=== PATIENT | male | born 1995 | race Asian ===

== ENCOUNTER 2018-12-18 21:50 | Emergency (ER) | payer OTHER ==
[2018-12-18] MEDS: HYDROCODONE/APAP (5/325) TAB PO (23:04)
== END 2018-12-19 01:24 | disposition home or self-care (01) ==
LOC: FTE 12-19 01:24
DX: S62.305A Unspecified fracture of fourth metacarpal bone, left hand, initial encounter for closed fracture (principal); S62.307A Unspecified fracture of fifth metacarpal bone, left hand, initial encounter for closed fracture; W22.8XXA Striking against or struck by other objects, initial encounter; Y92.9 Unspecified place or not applicable
CPT/HCPCS: 29125; 73110-LT; 73130-LT; 99283-25

== ENCOUNTER 2018-12-27 11:04 | Day surgery (SDC) | payer OTHER ==
[2018-12-27] MEDS ORDERED: FENTAnyl 50 MCG/ML VIAL (13:27)
[2018-12-27] MEDS ORDERED: HYDROmorphONE 2 MG/ML SYG (13:42)
[2018-12-27] MEDS ORDERED: FAMOTIDINE 20 MG INJ (13:43)
[2018-12-27] MEDS ORDERED: LIDOCAINE 2% (SDV) 5 ML INJ (13:43)
[2018-12-27] MEDS ORDERED: PROPOFOL 20 ML ×2 (13:43→14:00)
[2018-12-27] MEDS ORDERED: ONDANSETRON 4 MG INJ (13:43)
[2018-12-27] MEDS ORDERED: DEXAMETHASONE 4 MG/ML 5 ML INJ (13:43)
[2018-12-27] MEDS: BUPIVACAINE 0.25% (MPF) 30 ML INJ (13:45)
[2018-12-27] MEDS: POLYMYXIN/BACITRACIN 1L IRRIG (13:45)
[2018-12-27] MEDS ORDERED: CEFAZOLIN 1 GM INJ (13:52)
[2018-12-27] MEDS ORDERED: KETOROLAC 30 MG INJ (13:53)
[2018-12-27] MEDS ORDERED: HYDROmorphONE 1 MG/5 ML IV SYRINGE IV (15:00)
[2018-12-27] MEDS ORDERED: OXYCODONE/ACETAMINOPHEN (5/325) TAB PO (15:00)
[2018-12-27] MEDS ORDERED: FENTAnyl 50 MCG/ML VIAL IV (15:00)
[2018-12-27] MEDS: HYDROmorphONE 1 MG/5 ML IV SYRINGE IV ×2 (15:02→15:07)
[2018-12-27] MEDS: MEPERIDINE 25 MG INJ IV (15:08)
[2018-12-27] MEDS: FENTAnyl 50 MCG/ML VIAL IV ×2 (15:08→15:14)
[2018-12-27] MEDS: ONDANSETRON 4 MG INJ IV (15:08)
[2018-12-27] MEDS: OXYCODONE/ACETAMINOPHEN (5/325) TAB PO (16:22)
== END 2018-12-27 17:03 | disposition home or self-care (01) ==
LOC: SDS 11:04
DX: S62.325D Displaced fracture of shaft of fourth metacarpal bone, left hand, subsequent encounter for fracture with routine healing (principal); S62.327D Displaced fracture of shaft of fifth metacarpal bone, left hand, subsequent encounter for fracture with routine healing; X58.XXXD Exposure to other specified factors, subsequent encounter
CPT/HCPCS: 26608; 73130-LT